=== PATIENT | male | born 1935 | race Caucasian/White ===

== ENCOUNTER 2016-09-20 05:16 | Day surgery (SDC) | payer OTHER ==
[2016-09-20] VITALS (22 sets, daily range): BP systolic 111–178; BP diastolic 49–115; PULSE 40–70; RESP 16–20; Ht 162.6 cm; Wt 68.0 kg
[~2016-09-20] VITALS: Ht 162.6 cm; Wt 68.0 kg
[2016-09-20 06:31] LABS: ADD SCAN DIFF NO
[2016-09-20] MEDS ORDERED: ASPI-700 PO (06:39)
[2016-09-20] MEDS ORDERED: ISOS60TA PO (06:39)
[2016-09-20] MEDS ORDERED: HYDR12.53 PO (06:39)
[2016-09-20] MEDS ORDERED: CLOP75TA28 PO (06:39)
[2016-09-20] MEDS ORDERED: ATEN50TA PO (06:39)
[2016-09-20] MEDS ORDERED: AMLO2.5T78 PO (06:39)
[2016-09-20] MEDS ORDERED: ATOR20TA38 PO (06:39)
[2016-09-20] MEDS ORDERED: TAMS0.4C2 PO (06:39)
[2016-09-20] MEDS ORDERED: [UNRECOGNIZED DRUG - OTHER] PO (06:39)
[2016-09-20 06:51] LABS: ALBUMIN 4.2 g/dl (3.3-4.9)
[2016-09-20 06:54] LABS: ALBUMIN/GLOBULIN RATIO 1.44; BILIRUBIN,INDIRECT 0.4 mg/dl (0-1.1); BILIRUBIN,TOTAL 0.4 mg/dl (0.2-1.3); TOTAL PROTEIN 7.1 g/dl (6.1-8.1)
[2016-09-20 06:55] LABS: INR 1.06; PROTIME 13.8 Sec (12.2-14.2); PT RATIO 1.1
[2016-09-20 06:56] LABS: PARTIAL THROMBOPLASTIN TIME 31.8 Sec (25.0-35.0)
[2016-09-20 06:58] LABS: BASOPHIL # 0.1 10^3/ul (0.0-0.1); BASOPHILS % 0.4 % (0.0-2.0); EOSINOPHILS # 0.9 10^3/ul (0.0-0.5); EOSINOPHILS % 7.7 % (0.0-7.0); HEMATOCRIT 39.6 % (42.0-52.0); HEMOGLOBIN 13.7 g/dl (14.0-18.0); LYMPHOCYTES # 1.6 10^3/ul (0.8-2.9); LYMPHOCYTES % 13.2 % (15.0-51.0); MEAN CORPUSCULAR HEMOGLOBIN 31.6 pg (29.0-33.0); MEAN CORPUSCULAR HGB CONC 34.6 g/dl (32.0-37.0); MEAN CORPUSCULAR VOLUME 91.5 fl (82.0-101.0); MEAN PLATELET VOLUME 8.9 fl (7.4-10.4); MONOCYTE # 1.1 10^3/ul (0.3-0.9); MONOCYTES % 8.9 % (0.0-11.0); NEUTROPHIL # 8.4 10^3/ul (1.6-7.5); NEUTROPHILS % 69.4 % (39.0-77.0); PLATELET COUNT 199 10^3/UL (140-415); RED BLOOD COUNT 4.33 10^6/ul (4.70-6.10); RED CELL DISTRIBUTION WIDTH 11.5 % (11.5-14.5); WHITE BLOOD COUNT 12.1 10^3/ul (4.8-10.8)
[2016-09-20 07:05] LABS: CALCIUM 9.1 mg/dl (8.4-10.2); CREATININE 1.47 mg/dl (0.61-1.24); POTASSIUM 4.4 mmol/L (3.5-5.1)
[2016-09-20] MEDS ORDERED: FENTAnyl 50 MCG/ML VIAL ONE (07:15)
[2016-09-20] MEDS ORDERED: IODIXANOL LOCM 100 ML BTL ONE (07:15)
[2016-09-20] MEDS ORDERED: MIDAZOLAM 1 MG/ML 2 ML INJ ONE (07:15)
[2016-09-20] MEDS ORDERED: LIDOCAINE 1% (MDV) 20 ML INJ ONE (07:15)
[2016-09-20 07:48] LABS: CK-MB 1.89 ng/ml (0.0-2.4)
[2016-09-20 07:56] LABS: TROPONIN-I 0.015 ng/ml (0.00-0.12)
[2016-09-20] MEDS ORDERED: NITROGLYCERIN (SL) 0.4 MG TAB ONE (07:57)
[2016-09-20] MEDS ORDERED: VERAPAMIL 5 MG INJ ONE (07:57)
[2016-09-20] MEDS ORDERED: NITROGLYCERIN (IC) 100 MCG/ML INJ ONE (07:58)
[2016-09-20] MEDS ORDERED: HEPARIN 1000 UNITS/ML 10 ML INJ ONE (07:58)
[2016-09-20] MEDS ORDERED: SOD CHLORIDE 0.9% 1,000 ML IV ONE (08:00)
[2016-09-20] MEDS ORDERED: SOD CHLORIDE 0.9% 1,000 ML ONE (08:06)
[2016-09-20] MEDS ORDERED: SOD CHLORIDE 0.9% 1,000 ML IV SCH (08:47)
[2016-09-20] MEDS ORDERED: ACETAMINOPHEN 325 MG TAB PO PRN (09:00)
[2016-09-20] MEDS ORDERED: morphine 2 MG INJ IV PRN (09:00)
--- NOTE | 2016-09-23 08:49 | SP ---
DATE OF PROCEDURE: 09/20/2016 NAME OF PROCEDURE: Left heart catheterization, right and left coronary angiography with the use of b ilateral simultaneous right and left coronary angiography using both right femoral artery approach a s well as left brachial approach. 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 FINDINGS: 1. The left main coronary is a very short vessel. It is small, with probably 20% to 30% diffuse st enosis. 2. Left anterior descending artery has a stent in the proximal and mid areas, which is patent, abo ut 10% stenosis only. There are 2 small diagonals coming off, which is jailed by the stent. They w ere 99%, but with small ones. 3. Mid to distal after the stent there was about 50% calcified stenosis of the left anterior descen ding. 4. Ramus intermedius is a very large vessel. There is a previous stent, which is widely patent. 5. Left circumflex artery is a moderate sized small vessel. Appeared to be normal. 6. Right coronary artery is a dominant vessel. Ostially pressure damping was noted, probably about 70% stenosis. At the mid level is 100% occlusion. There are right to right collaterals, as well a s [id number] collaterals noted. 5. LV systolic pressure is 165, LVEDP is 14. Aortic pressure with pullback is 158/43. DESCRIPTION OF PROCEDURE: Written informed consent was obtained. The risks and benefits were discu ssed with the patient The patient was brought to the culture media laboratory assistant and placed in the supine position. T he right and left groins were in sterile fashion. was anesthetized with 1% lidocaine ___ __ Seldinger technique femoral artery. Right femoral angiogram was performed. Left coronary angiography was performed which showed a patent previous stent. At this time decided to perform sim ultaneous injections of the right and left coronary arteries to evaluate for possible PCI of the LENS COATING TECHNICIAN later on. Left radial area was prepped and draped in sterile fashion. Using ultrasound-guidance, a 6-Bengali sheath was placed in the left radial artery. Arterial flow was obtained. was given . The JR4 catheter was advanced and engaged in the right coronary artery. Could not see too well a nd kept getting out. I had to change it to a MACKAY catheter, which was placed into the right coronar y artery. Then the JL4 catheter was advanced to the left main coronary artery. Simultaneous inject ions of both the right and left was performed. The catheter were removed. The same JL4 josefina ter also had been engaged into the left and hemodynamics were recorded. The catheter and Glid ewire were removed. Perclose was successfully deployed. IMMEDIATE COMPLICATIONS: None. TOTAL CONTRAST USED: 50 mL. 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 RECOMMENDATIONS: Aggressive medical therapy. We will discuss with the patient and the family later on regarding possible high risk and complicated intervention on the LENS COATING TECHNICIAN of the right coronary arter y at a future time once the patient recovers from the radiation and the contrast from this procedure . Dictated By: MARTHA LOWE/CHERI Conf#: [id number] DID#: [id number]
== END 2016-09-20 16:42 | disposition home or self-care (01) ==
LOC: SDS 05:16
PROVIDERS: ATTEND Internal Medicine Interventional Cardiology
DX: I25.10 Atherosclerotic heart disease of native coronary artery without angina pectoris (principal); I10 Essential (primary) hypertension; E78.5 Hyperlipidemia, unspecified; Z79.82 Long term (current) use of aspirin
CPT/HCPCS: 80053; 82550; 82553; 84484; 85025; 85610; 85730; 93458; C1760; C1769; C1887; C1894; J1644; J2250; J3010; J7040; Q9967